=== PATIENT | female | born 1970 | race Caucasian/White ===

== ENCOUNTER 2024-07-15 09:28 | Outpatient (CLI) | payer MEDICARE, MEDICAID ==
--- NOTE | 2024-07-15 11:00 | RADIOLOGY REPORT ---
EXAM: DI SHOULDER, COMPLETE (MIN 2 VWS) CLINICAL INDICATION: RIGHT SHOULDER PAIN TECHNIQUE: DI SHOULDER, COMPLETE (MIN 2 VWS) Comparison: None FINDINGS/IMPRESSION: distal right clavicular fracture
--- NOTE | 2024-07-15 11:10 | RADIOLOGY REPORT ---
CLINICAL INFORMATION: 53 years old, Female; PAIN IN RIGHT SHOULDER. TECHNIQUE: Multisequence multiplanar MRI images of the right shoulder were obtained without contras t. COMPARISON: Radiographs dated 07/15/2024. FINDINGS: Acromioclavicular joint: There is mild acromioclavicular hypertrophy and moderate edema. There is Typ e 2 acromion. Small to moderate amount of fluid in the subacromial / subdeltoid bursa. Rotator cuff tendons: [id number] tendinosis of the distal supraspinatus and infraspinatus tendo ns without visualized tendon tear given the limitations of the examination. Subscapularis and teres minor tendons appear intact. Biceps tendon: No significant tendinosis. No evidence of attrition or tear. Labrum: No labral tear identified. Bones: No fracture or focal marrow contusion. Muscles: Prominent fluid interposed in the muscle fibers near the junction of the infraspinatus and t eres minor muscles, may be sequela of partial tear, with the fluid collection measuring up to 2.2 cm in greatest dimension. Other: Limited examination due to motion artifact and loss of fat saturation on the fat saturated im ages. Sagittal PD fat-sat images particularly limited. IMPRESSION: 1. Limited examination for the reasons described above. 2. Rotator cuff tendinosis without evidence of rotator cuff tendon tear. 3. Prominent fluid collection interposed in the distal rotator cuff muscle fibers near the junction o f the infraspinatus and teres minor muscles, suspected tear. Poorly evaluated due to the limitations of the examination. 4. Mild acromioclavicular hypertrophy with [id number] subacromial / subdeltoid bursitis. 5. Additional findings as described above.
== END 2024-07-15 23:59 | disposition home or self-care (01) ==
LOC: MRI 09:28
PROVIDERS: ATTEND Nurse Practitioner
DX: S42.031A Displaced fracture of lateral end of right clavicle, initial encounter for closed fracture (principal); M25.511 Pain in right shoulder; M75.101 Unspecified rotator cuff tear or rupture of right shoulder, not specified as traumatic; X58.XXXA Exposure to other specified factors, initial encounter; Y93.89 Activity, other specified; Y92.89 Other specified places as the place of occurrence of the external cause; Y99.8 Other external cause status
CPT/HCPCS: 73030; 73221